=== PATIENT | male | born 1955 | race Asian ===

== ENCOUNTER 2017-05-23 08:45 | Emergency (ER) | payer SELFPAY ==
[~2017-05-23] VITALS: Ht 162.6 cm; Wt 72.6 kg
[2017-05-23 08:49] VITALS: Ht 162.6 cm; Wt 72.6 kg
[2017-05-23 11:00] VITALS: BP 145/92
== END 2017-05-23 11:03 | disposition home or self-care (01) ==
LOC: ED 08:45
DX: R33.9 Retention of urine, unspecified (principal); I10 Essential (primary) hypertension

== ENCOUNTER 2017-05-26 13:37 | Emergency (ER) | payer SELFPAY ==
[~2017-05-26] VITALS: Ht 162.6 cm; Wt 74.4 kg
[2017-05-26 14:20] VITALS: Ht 162.6 cm; Wt 74.4 kg
[2017-05-26 16:37] VITALS: BP 176/104
== END 2017-05-26 16:38 | disposition home or self-care (01) ==
LOC: ED 13:37
DX: Z46.89 Encounter for fitting and adjustment of other specified devices (principal); R33.9 Retention of urine, unspecified; I10 Essential (primary) hypertension